=== PATIENT | male | born 1975 | race Caucasian/White ===

== ENCOUNTER 2021-03-25 18:50 | Emergency (ER) | payer SELFPAY ==
[2021-03-25] MEDS ORDERED: Cephalexin 500 MG Cap PO ONE (20:42)
[2021-03-25] MEDS ORDERED: Ibuprofen 600 MG Tab PO ONE (20:42)
--- NOTE | 2021-03-25 20:45 | EDM.PDOC ---
ED HPI GENERAL MEDICAL PROBLEM - General Chief Complaint: ENT Problem Stated Complaint: TOOTH BROKE SIDE OF FACE NOW SWOLLEN AND PURPLE Time Seen by Provider: 03/25/21 20:40 - History of Present Illness INITIAL COMMENTS - FREE TEXT/NARRATIVE: HISTORY AND PHYSICAL: History of present illness: This is a 45-year-old gentleman who presents ER today secondary to swelling to his left nasolabial fold x1 day. Patient reports that he fractured his left upper incisors yesterday and today noticed swelling and pain to that area. Patient actually thought it might be an i-STAT however patient reports that he has a lot of pain to his tooth and thinks is probably from infection meds a sending from his tooth. Patient has any recent fevers, shakes, chills, nausea, vomiting, diarrhea, dysuria, frequency, urgency. Patient reports that he is a diabetic and is currently on Metformin. Patient reports that he will follow up with a dentist as soon as possible. Review of systems: As per history of present illness and below otherwise all systems reviewed and negative. Past medical history: As per history of present illness and as reviewed below otherwise noncontributory. Surgical history: As per history of present illness and as reviewed below otherwise noncontributory. Social history: No reported history of drug abuse. Family history: As per history of present illness and as reviewed below otherwise noncontributory. Physical exam: This patient was seen and evaluated during the 2019 SARS-CoV-2 novel coronavirus pandemic period. Community viral transmission is ongoing at time of this encounter and the emergency department is operating under pandemic response procedures. Constitutional: Patient is oriented to person, place, and time. Appears well- developed and well-nourished. No distress. HEENT: Moist mucous membranes Head: Normocephalic and atraumatic Eyes: Right eye exhibits no discharge. Left eye exhibits no discharge. No scleral icterus Neck: Normal range of motion. No tracheal deviation present. Cardiovascular: Normal rate and regular rhythm. Pulmonary: Effort normal, no respiratory distress. Abdominal: No distention Musculoskeletal: Normal range of motion Neurologic: Alert and oriented to person, place and time. Skin: [place], warm and dry. Psychiatric: Normal mood and affect. Behavior is normal. Judgment and thought content normal. Nursing note and vital signs have been reviewed Patient with soft tissue swelling and tenderness to palpation to his left nasolabial fold. Patient does have multiple fractured teeth and swelling to the gumline of his left upper incisor/premolar. Patient has no trismus. Patient has no airway compromise. Therapeutics: Keflex/ibuprofen Assessment and plan: 45-year-old gentleman who presents to the ER today secondary to dental abscess. Patient be given a prescription for Keflex and ibuprofen and a dose here in the ED. Patient has been instructed for the need to follow-up with a dentist as soon as possible for likely root canal or extraction of the teeth. Patient is not exhibiting any signs or symptoms for sepsis or airway compromise. Reassessment at the time of disposition demonstrates that the patient is in no acute distress. The patient has remained stable throughout the entire ED visit and is without objective evidence for acute process requiring urgent intervention or hospitalization. The patient is stable for discharge, counseling is provided as documented above, discussed symptomatic treatment and specific conditions for return. I have spoken with the patient/caregiver and discussed todays findings, in add ition to providing specific details for the plan of care. Questions are answered and there is agreement with the plan. Definitive disposition and diagnosis as appropriate pending reevaluation and rev iew of above. face, dental Pain Score (Numeric/FACES): 9 - Related Data Allergies Allergy/AdvReac Type Severity Reaction Status Date / Time No Known Allergies Allergy Verified 03/25/21 20:33 Home Meds: Home Meds metFORMIN [Glucophage XR] 1,000 mg PO DAILY 03/25/21 [History] Past Medical History - Past Health History Medical/Surgical History: Denies Medical/Surgical History Endocrine/Metabolic History: Reports: Diabetes, Type II - Infectious Disease History Infectious Disease History: Reports: MRSA Social & Family History - Family History Family Medical History: No Pertinent Family History - Tobacco Use Tobacco Use Status *Q: Never Tobacco User - Recreational Drug Use Recreational Drug Use: No ED ROS GENERAL - Review of Systems Review Of Systems: See Below ED EXAM, GENERAL - Physical Exam Exam: See Below Course - Vital Signs Last Recorded V/S: Last Vital Signs Temp 98.2 F 03/25/21 20:31 Pulse 98 03/25/21 20:31 Resp 18 03/25/21 20:31 BP 161/85 H 03/25/21 20:31 Pulse Ox 96 03/25/21 20:31 - Orders/Labs/Meds Orders: Active Orders 24 hr Category Date Time Status Ibuprofen [Motrin] Med 03/25/21 20:42 Once 600 mg PO ONETIME ONE cephALEXin [Keflex] Med 03/25/21 20:42 Once 500 mg PO ONETIME ONE Departure - Departure Time of Disposition: 20:45 Disposition: Home, Self-Care 01 Condition: Good Clinical Impression: Dental abscess - Discharge Information Instructions: Dental Abscess, [id number] Referrals: PCP,None [Primary Care Provider] - Additional Instructions: You were seen and evaluated in ER today secondary to swelling to your face that is most likely secondary to a dental abscess from a fractured tooth. You will be given a prescription for cephalexin and ibuprofen to take help with your pain and infection. Please see dentist soon as possible. The following information is given to patients seen in the emergency department who are being discharged to home. This information is to outline your options for follow-up care. We provide all patients seen in our emergency department with a follow-up referral. The need for follow-up, as well as the timing and circumstances, are variable depending upon the specifics of your emergency department visit. If you don't have a primary care physician on staff, we will provide you with a referral. We always advise you to contact your personal physician following an emergency department visit to inform them of the circumstance of the visit and for follow-up with them and/or the need for any referrals to a consulting specialist. The emergency department will also refer you to a specialist when appropriate. This referral assures that you have the opportunity for follow-up care with a specialist. All of these measure are taken in an effort to provide you with optimal care, which includes your follow-up. Under all circumstances we always encourage you to contact your private physician who remains a resource for coordinating your care. When calling for follow-up care, please make the office aware that this follow-up is from your recent emergency room visit. If for any reason you are refused follow-up, please contact the [facility] Emergency Department at and asked to speak to the emergency department charge nurse. [facility] [address] [place] [address] [id number] [address] [address] Sepsis Event Note (ED) - Evaluation Sepsis Screening Result: No Definite Risk - Focused Exam Vital Signs: Vital Signs Temp Pulse Resp BP Pulse Ox 03/25/21 20:31 98.2 F 98 18 161/85 H 96 - My Orders Last 24 Hours: My Active Orders 03/25/21 20:42 Ibuprofen [Motrin] 600 mg PO ONETIME ONE cephALEXin [Keflex] 500 mg PO ONETIME ONE - Assessment/Plan Last 24 Hours: My Active Orders 03/25/21 20:42 Ibuprofen [Motrin] 600 mg PO ONETIME ONE cephALEXin [Keflex] 500 mg PO ONETIME ONE
== END 2021-03-25 20:52 | disposition home or self-care (01) ==
LOC: MW.ED 18:50
DX: K04.7 Periapical abscess without sinus (principal); E11.9 Type 2 diabetes mellitus without complications; Z79.84 Long term (current) use of oral hypoglycemic drugs
CPT/HCPCS: 99282; A9270

== ENCOUNTER 2021-03-26 10:43 | Emergency (ER) | payer SELFPAY | END 2021-03-26 11:44 | disposition left against medical advice (07) | LOC: MW.ED 10:43 | DX: Z53.21 Procedure and treatment not carried out due to patient leaving prior to being seen by health care provider (principal) ==